=== PATIENT | male | born 1970 | race Caucasian/White ===

== ENCOUNTER 2018-03-29 07:47 | Emergency (ER) | payer OTHER ==
[~2018-03-29] VITALS: Ht 170.2 cm; Wt 72.7 kg
[~2018-03-29 07:47] MED LIST: CLONIDINE0.1 MG PO; COUMADIN6 MG PO; CREON24000 UNT PO; DOXYCYCLINE150 MG PO; FERROUS SULF325 M2 PO; KEFLEX500 MG PO; LISINOPRIL10 MG PO; METOCLOPRAMIDE10 MG PO; METOPROLOL SUCC50 MG PO; NEXIUM40 M1 PO; NORCO1 TA1 PO; OMEPRAZOLE20 MG PO; ONDANSETRON4 MG PO; OXYCODONE20 MG PO; PRILOSEC20 MG PO; PROBIOTIC1 TAB PO; SPIRONOLACT25 MG PO
[2018-03-29] MEDS ORDERED: TORADOL PO (09:46)
[2018-03-29] MEDS ORDERED: KEFLEX500 M1 PO (09:46)
[2018-03-29 10:33] VITALS: BP 180/70
== END 2018-03-29 10:45 | DRG 605 ==
LOC: ED 07:47
PROC: 0HQ1XZZ Repair Face Skin, External Approach (ICD-10-PCS; principal; 2018-03-29)
PROC: 2W3DX1Z Immobilization of Left Lower Arm using Splint (ICD-10-PCS; 2018-03-29)
DX: S01.81XA Laceration without foreign body of other part of head, initial encounter (principal); S52.515A Nondisplaced fracture of left radial styloid process, initial encounter for closed fracture; S66.911A Strain of unspecified muscle, fascia and tendon at wrist and hand level, right hand, initial encounter; S80.02XA Contusion of left knee, initial encounter; W06.XXXA Fall from bed, initial encounter; W17.89XA Other fall from one level to another, initial encounter; Y92.143 Cell of prison as the place of occurrence of the external cause